=== PATIENT | male | born 1975 | race American Indian/Alaskan Native ===

== ENCOUNTER 2023-02-10 05:10 | Emergency (ER) | payer SELFPAY ==
[~2023-02-10] VITALS: Ht 170.2 cm; Wt 75.8 kg
[~2023-02-10 05:10] MED LIST: ALBU90OI INH; ALBU90OI6 INH; BUPR100 PO; BUPR150T2 PO; CEPH500 PO; CODGUAEL PO; DOXY100 PO; IBUP800 PO; LORA1 PO; MELO7.5 PO; NAPR500 PO; ONDA4 PO; OXYACE5T PO; OXYACE7.5T PO; PENVK500 PO; PRED10 PO; RXOXYACE PO; TRAM50 PO; VALS80 PO; [UNRECOGNIZED DRUG - OTHER]; [UNRECOGNIZED DRUG - REMARK]
[2023-02-10 05:27] VITALS: BP 127/93
[2023-02-10 07:25] LABS: Source, Urine Clean Catch
[2023-02-10] MEDS ORDERED: METR500 PO (07:27)
[2023-02-10] MEDS ORDERED: IBUP800 PO (07:27)
[2023-02-10 07:28] LABS: Appearance, Urine Hazy (Clear); Bilirubin, Urine Neg (Neg); Blood, Urine Neg (Neg); Color, Urine Yellow (P-Yellow); Glucose Qualitative, Urine Neg (Neg); Ketones, Urine Neg (Neg); Leukocyte Esterase, Urine 2+ (Neg); Nitrite, Urine Neg (Neg); Protein, Urine 1+ (Neg); Specific Gravity, Urine 1.015 (1.003-1.022); Urobilinogen, Urine 2+ (Normal)
[2023-02-10 07:36] LABS: White Blood Cells, Urine 25-50 /hpf (0-5)
[2023-02-10 07:38] LABS: Red Blood Cells, Urine 0-2 /hpf (0-2)
[2023-02-10 07:42] LABS: Bacteria Few /hpf; Mucus Mod (0-Heavy)
[2023-02-10 07:43] LABS: Spermatozoa Few /hpf
[2023-02-10 07:45] LABS: Hyaline Casts 0-2 /lpf (0-2); Squamous Epithelial Cells Not Seen /hpf (Few)
[2023-02-12 02:11] LABS: CHLAMYDIA TRACHOMATIS, NAA Negative (Negative)
== END 2023-02-10 07:45 | disposition home or self-care (01) ==
LOC: ER 05:10
PROVIDERS: Emergency Medicine
DX: N45.1 Epididymitis (principal); N34.1 Nonspecific urethritis; Z88.5 Allergy status to narcotic agent; Z88.8 Allergy status to other drugs, medicaments and biological substances; I10 Essential (primary) hypertension
CPT/HCPCS: 81001; 87086; 87491; 87591; 96372; 99283-25; A9270; J0696; J1885

== ENCOUNTER 2023-03-02 18:01 | Emergency (ER) | payer OTHER ==
[~2023-03-02] VITALS: Ht 172.7 cm; Wt 81.7 kg
[~2023-03-02 18:01] MED LIST changes: +METR500 PO
[2023-03-02] MEDS ORDERED: Amoxicillin500 MG PO (21:06)
[2023-03-02] MEDS ORDERED: Roxicodone5 MG PO (21:06)
[2023-03-02 21:35] VITALS: BP 170/113
== END 2023-03-02 21:46 | disposition home or self-care (01) ==
LOC: ER 18:01
DX: S02.40EA Zygomatic fracture, right side, initial encounter for closed fracture (principal); S02.40CA Maxillary fracture, right side, initial encounter for closed fracture; S02.31XA Fracture of orbital floor, right side, initial encounter for closed fracture; W01.198A Fall on same level from slipping, tripping and stumbling with subsequent striking against other object, initial encounter; I10 Essential (primary) hypertension; Z88.5 Allergy status to narcotic agent; Z79.899 Other long term (current) drug therapy; Z87.891 Personal history of nicotine dependence
CPT/HCPCS: 70450; 70486; 72125; 96374; 96375; 99283-25; A9270; J2405; J3010

== ENCOUNTER 2023-10-14 14:07 | Emergency (ER) | payer OTHER ==
[~2023-10-14] VITALS: Ht 172.7 cm; Wt 68.0 kg
[~2023-10-14 14:07] MED LIST changes: +Amoxicillin500 MG PO; +GABA300 PO; +PROP10 PO; +Prilosec Otc20 MG PO; +Roxicodone5 MG PO
[2023-10-14 14:30] VITALS: BP 146/101
[2023-10-15] MEDS ORDERED: SUBOXONE 8 MG-1 EACH SL (09:59)
[2023-10-15] MEDS ORDERED: NARCAN4 M1 (09:59)
[2023-10-15] MEDS ORDERED: ACTIVATED CHARCOAL PO (10:00)
[2023-10-15] MEDS ORDERED: MIRALAX17 GM PO (10:00)
[2023-10-15] MEDS ORDERED: ACET500 PO (10:00)
[2023-10-15] MEDS ORDERED: ASPI81CH PO (10:01)
[2023-10-15] MEDS ORDERED: IBUP200 PO (10:02)
[2023-10-15] MEDS ORDERED: GUAI200 PO (10:02)
[2023-10-15] MEDS ORDERED: LOPE2C PO (10:02)
[2023-10-15] MEDS ORDERED: Diphenhydramine50 M1 PO (10:02)
[2023-10-15] MEDS ORDERED: ZOCOR20 MG PO (10:03)
== END 2023-10-14 17:25 | disposition home or self-care (01) ==
LOC: ER 14:07
DX: T50.901A Poisoning by unspecified drugs, medicaments and biological substances, accidental (unintentional), initial encounter (principal); R40.4 Transient alteration of awareness; I10 Essential (primary) hypertension; Z87.891 Personal history of nicotine dependence; Z79.899 Other long term (current) drug therapy; Z88.5 Allergy status to narcotic agent
CPT/HCPCS: 82947; 99284

== ENCOUNTER 2023-10-15 07:55 | Inpatient (IN) | payer OTHER ==
[~2023-10-15] VITALS: Ht 172.7 cm; Wt 64.0 kg
[2023-10-15] VITALS (42 sets, daily range): BP systolic 63–121; BP diastolic 52–90
[2023-10-15] MEDS ORDERED: Lactated Ringer's 1,000 ML IV ONE ×3 (08:18→11:05)
[2023-10-15 08:20] LABS: Bicarbonate Venous 13.9 mmol/L (24.0-30.0); PCO2 Venous 67 mmHg (38-42); pH Blood Venous 7.05 (7.34-7.37)
[2023-10-15 08:21] LABS: Base Excess Venous -12.2 mmol/L
[2023-10-15 08:24] LABS: BASOPHILS ABSOLUTE AUTO 0.04 K/mm3 (0.00-0.23); BASOPHILS PERCENT AUTO 0 % (0-2); EOSINOPHILS ABSOLUTE AUTO 0.37 K/mm3 (0.00-0.68); EOSINOPHILS PERCENT AUTO 2 % (0-6); Hematocrit 42.4 % (37.0-53.0); Hemoglobin 12.7 g/dL (13.5-17.5); IMMATURE GRAN ABSOLUTE AUTO 0.11 K/mm3 (0.00-0.10); IMMATURE GRAN PERCENT AUTO 1 % (0-1); LYMPHOCYTES ABSOLUTE AUTO 1.35 K/mm3 (0.84-5.20); LYMPHOCYTES PERCENT AUTO 6 % (21-46); MONOCYTES ABSOLUTE AUTO 0.47 K/mm3 (0.16-1.47); MONOCYTES PERCENT AUTO 2 % (4-13); Mean Corpuscular HGB 27.7 pg (26.0-34.0); Mean Corpuscular Volume 92 fL (80-100); Mean Platelet Volume 10.1 fL (9.1-12.4); NEUTROPHILS ABSOLUTE AUTO 18.83 K/mm3 (1.96-9.15); NEUTROPHILS PERCENT AUTO 89 % (41-73); NRBC ABSOLUTE 0.02 K/mm3 (0.00-0.02); NRBC Auto 0.1 /100 WBC (0.0-0.2); Platelet Count 463 K/mm3 (150-400); RDW Coefficient Variation 15.4 % (11.7-14.2); RDW Standard Deviation 52.2 fL (35.1-46.3); Red Blood Cell Count 4.59 M/mm3 (4.30-5.90); White Blood Cell Count 21.17 K/mm3 (4.00-11.30)
[2023-10-15] MEDS ORDERED: propofoL 100 ML IV SCH ×2 (08:40→13:10)
[2023-10-15 08:41] LABS: Albumin, Blood 3.4 g/dL (3.4-5.0); Albumin/Globulin Ratio 0.8 (0.8-1.8); Bilirubin, Total 0.8 mg/dL (0.1-1.0); Bun/Creatinine Ratio 12.4 (12.0-20.0); Calcium, Blood 8.4 mg/dL (8.5-10.1); Creatinine, Blood 2.17 mg/dL (0.60-1.20); Globulin, Blood 4.3 g/dL (2.2-4.0); Potassium, Blood 5.3 mmol/L (3.5-5.5); Total Protein, Blood 7.7 g/dL (6.4-8.2)
[2023-10-15] MEDS ORDERED: Rocuronium Bromide 10 MG/ML 5ML Injection IV ONE ×2 (09:15→17:33)
[2023-10-15] MEDS ORDERED: Ketamine HCl 100 MG / ML 5ML Vial IV ONE ×3 (09:15→17:33)
[2023-10-15 09:41] LABS: Source, Urine Foley catheter
[2023-10-15 09:49] LABS: Appearance, Urine Clear (Clear); Bilirubin, Urine Neg (Neg); Blood, Urine 3+ (Neg); Color, Urine Yellow (P-Yellow); Glucose Qualitative, Urine 2+ (Neg); Ketones, Urine Neg (Neg); Leukocyte Esterase, Urine Neg (Neg); Nitrite, Urine Neg (Neg); Protein, Urine 2+ (Neg); Urobilinogen, Urine NORM (Normal)
[2023-10-15 09:56] LABS: Bacteria Few /hpf; Mucus Light (0-Heavy); Red Blood Cells, Urine 0-2 /hpf (0-2); Squamous Epithelial Cells Few /hpf (Few)
[2023-10-15] MEDS ORDERED: NARCAN4 M1 (09:59)
[2023-10-15] MEDS ORDERED: SUBOXONE 8 MG-1 EACH SL (09:59)
[2023-10-15] MEDS ORDERED: MIRALAX17 GM PO (10:00)
[2023-10-15] MEDS ORDERED: ACET500 PO (10:00)
[2023-10-15] MEDS ORDERED: ACTIVATED CHARCOAL PO (10:00)
[2023-10-15] MEDS ORDERED: ASPI81CH PO (10:01)
[2023-10-15] MEDS ORDERED: Diphenhydramine50 M1 PO (10:02)
[2023-10-15] MEDS ORDERED: LOPE2C PO (10:02)
[2023-10-15] MEDS ORDERED: IBUP200 PO (10:02)
[2023-10-15] MEDS ORDERED: GUAI200 PO (10:02)
[2023-10-15] MEDS ORDERED: ZOCOR20 MG PO (10:03)
[2023-10-15 10:04] LABS: U Amphetamine Screen DETECTED; U Barbituate Screen Not Detected; U Benzodiazapine Screen Not Detected; U Buprenorphine Screen DETECTED; U Cannabinoids Screen DETECTED; U Cocaine Screen Not Detected; U Methadone Screen Not Detected; U Methamphetamine Screen DETECTED; U Opiates Screen Not Detected; U Oxycodone Screen Not Detected; U Phencyclidine Screen Not Detected
[2023-10-15 10:18] LABS: pH Blood Venous 7.15 (7.34-7.37)
[2023-10-15 10:19] LABS: Base Excess Venous -8.5 mmol/L; Bicarbonate Venous 17.3 mmol/L (24.0-30.0); PCO2 Venous 59 mmHg (38-42)
[2023-10-15] MEDS ORDERED: Lactated Ringer's 1,000 ML IV SCH (10:20)
[2023-10-15] MEDS ORDERED: Ampicillin Sod/Sulbactam Sod 3 GM in NS 100 ML IV SCH (11:00)
--- NOTE | 2023-10-15 11:27 | NUR ---
ADMISSION: Pt arrived to ICU 09 from ED 26. He is intubated and sedated with soft wrist restraints in place. Propofol infusing at 5mck/kg/min, precedex at 1 mcg/kg/hr, and IVF bolus finishing.
[2023-10-15] MEDS ORDERED: NS 1,000 ML IV ONE ×4 (11:46→12:50)
--- NOTE | 2023-10-15 11:52 | NUR ---
PROVIDER UPDATE: Dr Mayberry notified of hypotension. See new order for NS bolus.
--- NOTE | 2023-10-15 12:10 | NUR ---
PATIENT BP SUDDENLY DROPPED TO SYSTOLICS 70'S, MAPS 50'S. PER DR. BINGHAM, INFIUSE CONTINUES NS BOLUSES UNTIL LEVOPHED GTT ARRIVES FROM PHARMACY. 1ST BAG INFUSING NOW WITH SECOND BAG WAITING TO BEGIN. CURRENT BP 64/56 MAP 60
[2023-10-15] MEDS ORDERED: Pantoprazole Sodium 40 MG Injection IV SCH (13:00)
[2023-10-15] MEDS ORDERED: Albumin (Human) 25gm/100ml 100 ML IV SCH (13:15)
[2023-10-15] MEDS ORDERED: Folic Acid 1 MG in NS 50 ML IV SCH (13:27)
[2023-10-15] MEDS ORDERED: Thiamine HCl 100 MG in NS 50 ML IV SCH (13:27)
[2023-10-15] MEDS ORDERED: levETIRAcetam 750 MG in NS 100 ML IV SCH (13:30)
[2023-10-15] MEDS ORDERED: NS 1,000 ML IV SCH ×3 (14:15→20:30)
[2023-10-15] MEDS ORDERED: LORazepam 2 MG/ML 1ML Injection ONE (14:52)
[2023-10-15] MEDS ORDERED: Midazolam HCl 1MG / ML 2ML Vial ONE (14:59)
[2023-10-15] MEDS ORDERED: Midazolam HCL 50 MG in NS 40 ML IV PRN (15:00)
[2023-10-15] MEDS ORDERED: LORazepam 2 MG/ML 1ML Injection IV PRN (15:00)
[2023-10-15] MEDS ORDERED: Midazolam HCl 1MG / ML 2ML Vial IV PRN (15:00)
[2023-10-15] MEDS ORDERED: Hydrogen Peroxide 1.5 % Solution MT SCH (16:00)
--- NOTE | 2023-10-15 18:14 | NUR ---
SHIFT SUMMARY PATIENT REQUIRED LEVOPHED TO BE STARTED DUE TO HYPOTENSION AND TITRATED THROUGHOUT SHIFT TO 10MCG/MIN. PROPOFOL @ 30MCG/KG/MIN, VERSED @ 1MG/HR, NS W/O. PATIENT WAS MEDICATED FOR AGITATION WITH ATIVAN AND VERSED AFTER PATIENT ATTEMPTED TO SELF EXTUBATE. PATIENT REMAINS INTUBATED. PICC LINE INSERTED THIS SHIFT DUE TO PRESSOR REQUIREMENTS. PATIENT DOES NOT FOLLOW COMMANDS, BUT MAKES PURPOSEFUL MOVEMENTS TO GRAB LINES AND TUBES WHEN SEDATION IS DOWN. PATIENT HAD GOOD URINE OUTPUT. NO BM THIS SHIFT WITH HYPOACTIVE BT.
[2023-10-15] MEDS ORDERED: Cetylpyridinium Chloride 1 EA MISC MT SCH (20:00)
--- NOTE | 2023-10-15 21:00 | NUR ---
ASSUMED CARE AT 1900 PT LAYING IN BED SEDATED AND INTUBATED. HE IS SEDATED WITH PROPOFOL INGUSING AT 30MCG/KG/MIN AND VERSED INFUSING AT 1MG/HR; RASS -3; REACTIVE TO ORAL CARE AND PERSONAL CARE. VENT SETTINGS AC/VC 20/450/10/55%; SMALL-MODERATE AMOUNT OF PINK/AYALA FROTHY SPUTUM SUCTIONED FROM ETT; CALL MADE TO DR DE DIOS REGARDING RATE OF NS INFUSING AND A NEW ORDER PROVIDED TO DECREASE RATE TO 150ML/HR; RR 20'S AND LUNG FEILDS CLEAR. AFEBRILE. HR 70'S. SBP 90-110'S WITH MAP 60-80; LEVOPHED INFUSING AT 8MCG/MIN; SEE FLOWSHEET FOR TITRATIONS. OG TO LIS. FRIEDMAN IN PLACE AND DRAINING TO GRAVITY. COOL AND DIAPHORETIC TO TOUCH; FAN PLACED AND BLANKETS REMOVED. PICC TO RUE PATENT WITH DRESSING C/D/I. SEE SHIFT ASSESSMENT FOR FULL ASSESSMENT.
[2023-10-16] VITALS (91 sets, daily range): BP systolic 86–163; BP diastolic 59–98
[2023-10-16 05:10] LABS: Hematocrit 30.7 % (37.0-53.0); Hemoglobin 9.7 g/dL (13.5-17.5); Mean Corpuscular HGB 27.5 pg (26.0-34.0); Mean Corpuscular HGB Conc 31.6 g/dL (31.5-36.5); Mean Platelet Volume 10.7 fL (9.1-12.4); Platelet Count 305 K/mm3 (150-400); RDW Standard Deviation 50.8 fL (35.1-46.3); Red Blood Cell Count 3.53 M/mm3 (4.30-5.90); White Blood Cell Count 17.03 K/mm3 (4.00-11.30)
[2023-10-16 05:11] LABS: Mean Corpuscular Volume 87 fL (80-100)
[2023-10-16 05:25] LABS: Albumin, Blood 2.7 g/dL (3.4-5.0); Anion Gap 10 mmol/L (3-11); Blood Urea Nitrogen 39 mg/dL (8-24); Bun/Creatinine Ratio 28.3 (12.0-20.0); CO2, Blood 23 mmol/L (21-32); Calcium, Blood 7.2 mg/dL (8.5-10.1); Chloride, Blood 113 mmol/L (98-108); Creatinine, Blood 1.38 mg/dL (0.60-1.20); Glomerular Filtration Rate 63 (60-); Glucose, Blood 113 mg/dL (70-99); Magnesium, Blood 1.7 mg/dL (1.6-2.4); Phosphorus, Blood 2.9 mg/dL (2.5-4.9); Potassium, Blood 4.9 mmol/L (3.5-5.5); Sodium, Blood 141 mmol/L (136-145)
--- NOTE | 2023-10-16 06:35 | NUR ---
END OF SHIFT SUMMARY NO ACUTE EVENTS OVERNIGHT. HE CONT TO BE SEDATED WITH PROPOFOL INFUSING AT 15MCG/KG/MIN AND VERSED CURRENTLY ON SB; RASS EITHER FROM -2 TO -3. VENT SETTINGS AC/VC 20/450/10/45%; SECREATIONS FROM ETT DECREASING SINCE START OF SHIFT. AFEBRILE. HR 70'S. SBP 100'S WITH LEVOPHED TITRATED DOWN TO 5MG/MIN. OG TO LIS WITH GREEN OUTPUT. FRIEDMAN IN PLACE WITH MODERATE AMOUNT OF OUTPUT. PICC TO LUE PATENT. PT LESS DIAPHORETIC THE NIGHT WENT ON. WILL REPORT TO AM RN WHEN AVAILABLE.
--- NOTE | 2023-10-16 07:44 | NUR ---
ASSUMED CARE I ASSUMED CARE OF THIS PATIENT FROM MATHEW Larkin RN @ [id number]. PATIENT IS LYING IN BED WITH EYES CLOSED, ON VENT AC/VC 20/450/8/45%. SPO2 100% ETCO2 29-30'S, RR 20. DOES NOT RESPOND TO VERBAL STIMULI, BUT RAISES EYE BROWS AND SHIFTS HEAD WITH PHYSICAL STIMULI AND REPOSITIONING. AT TIME OF REPORT PROPOFOL @ 15MCG/KG/MIN, TITRATED TO 10MCG/KG/MIN FOR ASSESSMENT. VERSED OFF, LEVOPHED @ 5MCG/MIN, NS @ 150ML/HR. PATIENT'S AUNT AT BEDSIDE AND UPDATE PROVIDED. FRIEDMAN REMAINS PATENT AND DRAINING CLEAR YELLOW URINE TO GRAVITY. BEDSIDE SHIFT REPORT COMPLETED WITH MATHEW Larkin RN.
[2023-10-16] MEDS ORDERED: Enoxaparin 40 MG/0.4 ML SYR SC SCH (09:00)
[2023-10-16] MEDS ORDERED: SIME80CH PO (10:24)
[2023-10-16] MEDS ORDERED: NICO21TP TOP (10:25)
[2023-10-16] MEDS ORDERED: NICORETTE2 M1 BC (10:28)
[2023-10-16] MEDS ORDERED: MELATONIN5 M1 PO (10:30)
[2023-10-16] MEDS ORDERED: MULTI-VITAMIN1 EAC2 PO (10:31)
--- NOTE | 2023-10-16 10:55 | NUR ---
SBT PATIENT TRIALED ON SPONTANEOUS AFTER FOLLOWING COMMANDS AND OPENING EYES. PATIENT BECAME APNEIC AND RETURNED TO AC/VC+. SEDATION REMAINS OFF AT THIS TIME.
--- NOTE | 2023-10-16 17:57 | NUR ---
SHIFT SUMMARY PATIENT REMAINS INTUBATED AFTER FAILING TWO SBT. PATIENT WAS UNABLE TO STAY AWAKE WITH ADEQUATE RESPIRATIONS DESPITE SEDATION BEING OFF. WHEN AWAKE PATIENT FOLLOWS COMMANDS AND ATTEMPTS TO OPEN EYES. PROPOFOL @ 15 MCG/KG/MIN AND NS @ 150ML/HR. OGT TO LIS WITH SCANT OUTPUT. FRIEDMAN PATENT AND DRAINING TO GRAVITY WITH GOOD URINE OUTPUT. NO BM THIS SHIFT. LEVOPHED AND VERSED REMAINS OFF. NO OTHER CHANGES THIS SHIFT.
--- NOTE | 2023-10-16 19:42 | NUR ---
ASSUMED CARE PATIENT REMAINS INTUBATED AND SEDATED ON PROPOFOL. PATIENT REPSONDS TO VERBAL AND TOUCH, MOVES ALL EXTREMITIES, UNABLE TO FOLLOW COMMANDS. SP02 99% ON VENT AC VC 20/450/5/30% RR 20. LS COARSE IN BASES, SMALL AMOUNT OF THICK AYALA SPUTUM. HR SR 70s. BP STABLE. OG TO LIS WITH SMALL AMOUNT GREEN BILE OUTPUT. FRIEDMAN PATENT AND DRAINING CLEAR YELLOW URINE TO GRAVITY. ORAL CARE DONE AND PATIENT REPOSITIONED. FAMILY AT BEDSIDE AT START OF SHIFT THEN WENT HOME. SEE SHIFT ASSESSMENT FOR MORE INFORMATION.
[2023-10-17] VITALS (66 sets, daily range): BP systolic 106–148; BP diastolic 70–105
[2023-10-17 04:07] LABS: BASOPHILS ABSOLUTE AUTO 0.04 K/mm3 (0.00-0.23); BASOPHILS PERCENT AUTO 0 % (0-2); EOSINOPHILS ABSOLUTE AUTO 0.09 K/mm3 (0.00-0.68); EOSINOPHILS PERCENT AUTO 1 % (0-6); Hematocrit 28.2 % (37.0-53.0); IMMATURE GRAN ABSOLUTE AUTO 0.12 K/mm3 (0.00-0.10); IMMATURE GRAN PERCENT AUTO 1 % (0-1); LYMPHOCYTES ABSOLUTE AUTO 1.95 K/mm3 (0.84-5.20); LYMPHOCYTES PERCENT AUTO 14 % (21-46); MONOCYTES ABSOLUTE AUTO 0.65 K/mm3 (0.16-1.47); MONOCYTES PERCENT AUTO 5 % (4-13); Mean Corpuscular HGB 27.4 pg (26.0-34.0); Mean Corpuscular HGB Conc 31.9 g/dL (31.5-36.5); Mean Corpuscular Volume 86 fL (80-100); Mean Platelet Volume 10.2 fL (9.1-12.4); NEUTROPHILS ABSOLUTE AUTO 11.09 K/mm3 (1.96-9.15); NEUTROPHILS PERCENT AUTO 80 % (41-73); Platelet Count 262 K/mm3 (150-400); RDW Coefficient Variation 16.5 % (11.7-14.2); RDW Standard Deviation 51.6 fL (35.1-46.3); Red Blood Cell Count 3.28 M/mm3 (4.30-5.90); White Blood Cell Count 13.94 K/mm3 (4.00-11.30)
[2023-10-17 04:26] LABS: Magnesium, Blood 1.9 mg/dL (1.6-2.4)
[2023-10-17 04:46] LABS: Albumin, Blood 2.5 g/dL (3.4-5.0); Albumin/Globulin Ratio 0.8 (0.8-1.8); Bilirubin, Total 0.5 mg/dL (0.1-1.0); Calcium, Blood 7.6 mg/dL (8.5-10.1); Creatinine, Blood 0.86 mg/dL (0.60-1.20); Globulin, Blood 3.1 g/dL (2.2-4.0); Phosphorus, Blood 1.4 mg/dL (2.5-4.9); Potassium, Blood 4.1 mmol/L (3.5-5.5); Total Protein, Blood 5.6 g/dL (6.4-8.2)
--- NOTE | 2023-10-17 05:17 | NUR ---
SHIFT SUMMARY PATIENT REMAINS INTUBATED AND SEDATED ON PROPOFOL. RESPONDS TO TOUCH, UNBALE TO FOLLOW COMMANDS. SP02 99% ON VENT, AC VC 20/450/5/30%, RR 20, SCANT AMOUNT OF THICK BROWN SPUTUM. OG TO LIS. HR SR 70s. BP STABLE. FRIEDMAN PATENT AND DRAINING SARAH URINE TO GRAVITY. REPOSITIONED Q2 HOURS.
[2023-10-17] MEDS ORDERED: Sodium Phosphate 20 MM in Dextrose 5% 500 ML IV ONE (06:10)
[2023-10-17] MEDS ORDERED: FentaNYL Citrate 50 MCG/ML 2 ML Injection ONE (07:19)
--- NOTE | 2023-10-17 07:34 | NUR ---
SEVERE AGITATION ASSUMED CARE AT 0705. BEDSIDE REPORT RECIEVED. PT INITIALLY RESTING QUIETLY AND SEDATED WITH PROPOFOL AT 20 MCG/KG/MIN. PT SUBSEQUENTLY BECAME SEVERELY AGITATED AND PULLED VENT TUBING OFF ETT AND WITH SEVERE THRASHING IN BED AND SITTING UP. OGT DISCONNECTED FROM SUCTION. PT EXTREMELY DIAPHORETIC. THIS RN, AND 2 OTHER STAFF MEMBERS NEEDED TO RECONNECT VENT, OGT, AND KEEP PT FROM COMING UP OUT OF BED. PT MED WITH ATIVAN AND FENTANYL, AND PROPOFOL GTT RAPIDLY TITRATED UP TO 60 MCG/KG/MIN. DR PAIZ CALLED AND NOTIFED OF EVENT. VITAL SIGNS STABLE AT THIS TIME. RT AT BEDSIDE TO INCREASE FIO2 TO 50%. WILL CONTINUE TO MONITOR.
[2023-10-17] MEDS ORDERED: FentaNYL Citrate 50 MCG/ML 2 ML Injection IV PRN (07:35)
[2023-10-17] MEDS ORDERED: fentaNYL citrate 50 MCG/ML 30MLSYR IV PRN (09:40)
[2023-10-17] MEDS ORDERED: NS 250 ML IV PRN (10:50)
[2023-10-17] MEDS ORDERED: Lactulose 20 GM/30 ML UDC PT ONE ×2 (12:00→16:00)
[2023-10-17] MEDS ORDERED: Bisacodyl 10 MG Supp PR PRN (12:40)
[2023-10-17] MEDS ORDERED: Docusate Sodium 100 MG UDC PT PRN (12:40)
[2023-10-17] MEDS ORDERED: Magnesium Hydroxide Conc 10 ML UDC PT PRN (12:40)
[2023-10-17] MEDS ORDERED: Protein Supplement 30 ML UD PT SCH (16:00)
--- NOTE | 2023-10-17 18:05 | NUR ---
SHIFT SUMMARY PT REMAINS INTUBATED AND SEDATED. PT VENT SETTINGS REMAIN AC 20, TV 450, PEEP 5, FIO2 30%. PT WITH LARGE AMOUNT OF THICK, AYALA ETT SECRETIONS. PT HAS REMAINED SEDATED WITH PROPOFOL AND ADDITION OF FENTANYL CONTINUOUS GTT THIS SHIFT. SEE FLOWSHEET FOR TITRATIONS. PT WITHOUT FUTHER EPISODES OF AGITATION/THRASHING AFTER EVENT AT START OF SHIFT. SEE PREVIOUS NN. OGT REMAINS IN PLACE WITH TF STARTED AT 30 ML/HR GOAL RATE THIS SHIFT. PICC TO GAGE REMAINS C/D/I. NS INFUSING AT 150 ML/HR AND NS TKO. FRIEDMAN TEMP PROBE REMAINS IN PLACE WITH YELLOW URINE OUTPUT NOTED. DR PAIZ NOTIFIED OF CALL FROM [facility] STAFF WITH REPORTED SUSPICION OF HIDDEN FENTANYL IN RECTUM AND POSITIVE FENTANYL TOX SCREEN. LACTULOSE PT GIVEN PER ORDERS WITH NO BM NOTED AT THIS TIME. SBW RESTRAINTS REMAIN IN PLACE. VITAL SIGNS STABLE. MULTIPLE FAMILY MEMBERS IN AND OUT THROUGHOUT THE SHIFT AND UPDATED THROUGHOUT THE DAY. WILL CONTINUE TO MONITOR AND REPORT OFF TO ONCOMING RN.
--- NOTE | 2023-10-17 19:51 | NUR ---
ASSUMED CARE AT 1900 PATIENT IS INTUBATED AND SEDATED ON PROPOFOL AND FENTANYL, RESPONDS TO PAINFUL STIMULI AND MOVES ALL EXTREMITIES. SP02 97% ON VENT AC VC 20/450/5/30%, RR 20, THICK AYALA SECRETIONS. HR SR 60s, BP STABLE. OG WITH TF AT GOAL. FRIEDMAN PATENT AND DRAINING TO GRAVITY. ORAL CARE DONE AND PATIENT REPOSITIONED
[2023-10-18] VITALS (93 sets, daily range): BP systolic 106–167; BP diastolic 77–111
[2023-10-18 04:01] LABS: BASOPHILS ABSOLUTE AUTO 0.04 K/mm3 (0.00-0.23); BASOPHILS PERCENT AUTO 0 % (0-2); Bicarbonate Venous 21.4 mmol/L (24.0-30.0); EOSINOPHILS PERCENT AUTO 2 % (0-6); Hematocrit 29.4 % (37.0-53.0); Hemoglobin 9.6 g/dL (13.5-17.5); IMMATURE GRAN PERCENT AUTO 1 % (0-1); LYMPHOCYTES ABSOLUTE AUTO 1.47 K/mm3 (0.84-5.20); LYMPHOCYTES PERCENT AUTO 12 % (21-46); MONOCYTES PERCENT AUTO 7 % (4-13); Mean Corpuscular HGB 28.2 pg (26.0-34.0); Mean Corpuscular HGB Conc 32.7 g/dL (31.5-36.5); Mean Corpuscular Volume 86 fL (80-100); Mean Platelet Volume 10.4 fL (9.1-12.4); NEUTROPHILS ABSOLUTE AUTO 9.69 K/mm3 (1.96-9.15); NEUTROPHILS PERCENT AUTO 78 % (41-73); PCO2 Venous 39.4 mmHg (38-42); Platelet Count 272 K/mm3 (150-400); RDW Coefficient Variation 16.9 % (11.7-14.2); RDW Standard Deviation 52.9 fL (35.1-46.3); Red Blood Cell Count 3.41 M/mm3 (4.30-5.90); pH Blood Venous 7.35 (7.34-7.37)
[2023-10-18 04:02] LABS: Base Excess Venous -3.6 mmol/L
[2023-10-18 04:17] LABS: Bun/Creatinine Ratio 33.4 (12.0-20.0); Calcium, Blood 8.1 mg/dL (8.5-10.1); Creatinine, Blood 0.63 mg/dL (0.60-1.20); Magnesium, Blood 2.3 mg/dL (1.6-2.4); Phosphorus, Blood 2.7 mg/dL (2.5-4.9); Potassium, Blood 3.6 mmol/L (3.5-5.5)
--- NOTE | 2023-10-18 05:48 | NUR ---
SHIFT SUMMARY PATIENT REMAINS INTUBATED AND SEDATED ON PROPOFOL AND FENTANYL. RESPONDS TO PAIN. SP02 97% ON VENT AC VC 20/450/5/30%, RR 20. THICK AYALA SPUTUM SUCTIONED FROM ETT. HR SR 60s, BP STABLE. OG WITH TF AT GOAL. FRIEDMAN PATENT AND DRAINING SARAH URINE. PATIENT REPOSITIONED Q2 HOURS.
[2023-10-18] MEDS ORDERED: Multivitamins-Minerals Liquid 15 ML Oral Syringe PT SCH (09:00)
[2023-10-18] MEDS ORDERED: CeFAZolin Sodium 1,000 MG in NS 50 ML IV SCH (12:00)
--- NOTE | 2023-10-18 18:35 | NUR ---
Summary. Pt remains sedated and intubated. Pt did not tolerate sedation vacation this am or wean. Family updated. No acute events this shift, see chart for further details.
--- NOTE | 2023-10-18 19:22 | NUR ---
ASSUMED CARE AT 1900 PATIENT IS INTUBATED AND SEDATED ON PROPOFOL AND FENTANYL, PRN VERSED GIVEN FOR AGITATION. PATIENT OPENING EYES AND PULLING AT RESTRAINTS BUT UNABLE TO FOLLOW COMMANDS. SP02 99% ON VENT AC VC 20/450/5/30%, RR 20, LS CLEAR. HR SR 70s, BP STABLE. OG WITH VITAL AF TUBE FEED AT GOAL RATE. FRIEDMAN PATENT AND DRAINING GREEN TINGED URINE TO GRAVITY. PATIENT REPOSITIONED AND ORAL CARE DONE.
[2023-10-18] MEDS ORDERED: Lactobacil 2-S.Thermo-Bifido 1 1 Cap PO SCH (21:00)
[2023-10-19] VITALS (46 sets, daily range): BP systolic 119–174; BP diastolic 81–116
[2023-10-19 04:15] LABS: BASOPHILS ABSOLUTE AUTO 0.03 K/mm3 (0.00-0.23); BASOPHILS PERCENT AUTO 0 % (0-2); EOSINOPHILS ABSOLUTE AUTO 0.18 K/mm3 (0.00-0.68); EOSINOPHILS PERCENT AUTO 2 % (0-6); Hematocrit 27.5 % (37.0-53.0); Hemoglobin 8.8 g/dL (13.5-17.5); IMMATURE GRAN ABSOLUTE AUTO 0.12 K/mm3 (0.00-0.10); IMMATURE GRAN PERCENT AUTO 1 % (0-1); LYMPHOCYTES ABSOLUTE AUTO 1.41 K/mm3 (0.84-5.20); LYMPHOCYTES PERCENT AUTO 17 % (21-46); MONOCYTES ABSOLUTE AUTO 0.84 K/mm3 (0.16-1.47); MONOCYTES PERCENT AUTO 10 % (4-13); Mean Corpuscular HGB 27.7 pg (26.0-34.0); Mean Corpuscular Volume 87 fL (80-100); Mean Platelet Volume 10.4 fL (9.1-12.4); NEUTROPHILS ABSOLUTE AUTO 5.86 K/mm3 (1.96-9.15); NEUTROPHILS PERCENT AUTO 69 % (41-73); NRBC ABSOLUTE 0.02 K/mm3 (0.00-0.02); NRBC Auto 0.2 /100 WBC (0.0-0.2); Platelet Count 294 K/mm3 (150-400); RDW Coefficient Variation 16.6 % (11.7-14.2); RDW Standard Deviation 52.7 fL (35.1-46.3); Red Blood Cell Count 3.18 M/mm3 (4.30-5.90); White Blood Cell Count 8.44 K/mm3 (4.00-11.30)
[2023-10-19 04:36] LABS: Bun/Creatinine Ratio 28.7 (12.0-20.0); Creatinine, Blood 0.7 mg/dL (0.60-1.20); Magnesium, Blood 2.3 mg/dL (1.6-2.4); Phosphorus, Blood 3.4 mg/dL (2.5-4.9); Potassium, Blood 3.5 mmol/L (3.5-5.5)
--- NOTE | 2023-10-19 05:55 | NUR ---
SHIFT SUMMARY PATIENT REMAINS INTUBATED AND SEDATED ON PROPOFOL AND FENTANYL. RESPONDS TO TOUCH. SP02 99% ON VENT AC VC 20/450/5/30%, RR 21, MODERATE AMOUNT OF THICK SECRETIONS FROM ETT. HR SR 60s, BP STABLE. OG WITH TUBE FEED AT GOAL RATE. FRIEDMAN PATENT AND DRAINING GREEN URINE TO GRAVITY. REPOSITIONED Q2 HOURS. UPDATED FAMILY.
--- NOTE | 2023-10-19 18:24 | NUR ---
Summary. Pt remains sedated and intubated. Pt did not follow commands during wean this am, Propofol turned down to 10 for approximately 30 minutes. No other changes. VS stable throughout shift. See chart for further details. Family updated.
--- NOTE | 2023-10-19 20:59 | NUR ---
ASSUMED CARE PT IS INTUBATED AND SEDATED ON PRESSURE CONTROL 18/10/6/30%. AUNT AND 2 FAMILY MEMBERS INTO VISIT AT BEGINNING OF SHIFT SEPARATELY. ON SEDATION VACATION PT OPENS EYES, BUT DOES NOT TRACK OR FOLLOW COMMANDS. PT BECOMES TACHYPNEIC (40'S), AND AGITATED; SEDATION REINITATED.
[2023-10-19] MEDS ORDERED: Labetalol HCL 5 MG/ML 4ML Injection (Single Dose) IV PRN (21:00)
[2023-10-20] VITALS (47 sets, daily range): BP systolic 119–180; BP diastolic 77–118
[2023-10-20 03:24] LABS: BASOPHILS ABSOLUTE AUTO 0.04 K/mm3 (0.00-0.23); BASOPHILS PERCENT AUTO 1 % (0-2); EOSINOPHILS ABSOLUTE AUTO 0.18 K/mm3 (0.00-0.68); EOSINOPHILS PERCENT AUTO 2 % (0-6); Hematocrit 27.2 % (37.0-53.0); Hemoglobin 8.9 g/dL (13.5-17.5); IMMATURE GRAN ABSOLUTE AUTO 0.29 K/mm3 (0.00-0.10); IMMATURE GRAN PERCENT AUTO 3 % (0-1); LYMPHOCYTES ABSOLUTE AUTO 1.44 K/mm3 (0.84-5.20); LYMPHOCYTES PERCENT AUTO 16 % (21-46); MONOCYTES ABSOLUTE AUTO 1.18 K/mm3 (0.16-1.47); MONOCYTES PERCENT AUTO 13 % (4-13); Mean Corpuscular HGB 27.6 pg (26.0-34.0); Mean Corpuscular HGB Conc 32.7 g/dL (31.5-36.5); Mean Corpuscular Volume 85 fL (80-100); Mean Platelet Volume 9.8 fL (9.1-12.4); NEUTROPHILS ABSOLUTE AUTO 5.67 K/mm3 (1.96-9.15); NEUTROPHILS PERCENT AUTO 64 % (41-73); Platelet Count 274 K/mm3 (150-400); RDW Coefficient Variation 16.8 % (11.7-14.2); RDW Standard Deviation 52.2 fL (35.1-46.3); Red Blood Cell Count 3.22 M/mm3 (4.30-5.90)
[2023-10-20 03:47] LABS: Bun/Creatinine Ratio 30.4 (12.0-20.0); Calcium, Blood 8.2 mg/dL (8.5-10.1); Creatinine, Blood 0.63 mg/dL (0.60-1.20); Magnesium, Blood 2.1 mg/dL (1.6-2.4); Phosphorus, Blood 4.2 mg/dL (2.5-4.9); Potassium, Blood 3.8 mmol/L (3.5-5.5)
--- NOTE | 2023-10-20 05:46 | NUR ---
SHIFT SUMMARY PT REMAINS INTUBATED AND SEDATED; VENT SETTINGS UNCHANGED. SPO2 >92%; MAP >65; RATE IN THE 70-80'S. PT HAS BEEN HYPERTENSIVE T/O NIGHT AND TREATED W/ LABETALOL PER DR MAYA. PT REQUIRED VERSED SEVERAL TIMES T/O NIGHT TO ASSIST W/ VENTILATOR COMPLIANCE; TACHYPNEIC, PULLING AT RESTRAINT/MOVING IN BED, AND OPENING EYES. PT CONTINUES TO NOT FOLLOW COMMANDS OR TRACK W/ EYES. BESIDES AGITATION AND HYPERTENSION NO ACUTE EVENTS OVERNIGHT. FRIEDMAN CATHETER PATENT AND DRAINING TO GRAVITY.
--- NOTE | 2023-10-20 07:00 | NUR ---
ASSUME CARE: I have assumed care of this patient.
--- NOTE | 2023-10-20 12:22 | NUR ---
FAMILY UPDATE: Pt's daughter, Tracie, called and updated on plan of care provided by Dr Mayberry. Possible plan to extubate tomorrow between 10AM-12PM. Family would like to be present at bedside.
[2023-10-20] MEDS ORDERED: Furosemide 10 MG/ML 4ML Vial IV ONE (13:00)
--- NOTE | 2023-10-20 19:16 | NUR ---
SHIFT SUMMARY: Precedex started today so propofol could be titrated down. Pt now able to open eyes spontaneously and move all extremities. He has required several doses of PRN versed as well. Pt diuresed today with good output. No BM today. Tube feeds at goal rate. Several family members at bedside for updates and visiting.
--- NOTE | 2023-10-20 20:48 | NUR ---
PATIENT RESTLESS AT TIME OF ASSESSMENT, NOT FOLLOWING COMMANDS, OR FOCUSING, TRACKING WITH EYES. SWINGING LEGS UP AND RT. LEG OVER SIDE OF BED. MEDICATED WITH VERSED APPROXIMATELY 30 MINUTES PRIOR. PRPOFOL SLOWLY INCREASED FROM 20 MCG TO 35 MCG OVER 40-45 MINUTES PERIOD. PATIENT LESS RESTLESS AT PRESENT TIME.
[2023-10-21] VITALS (44 sets, daily range): BP systolic 118–193; BP diastolic 69–123
--- NOTE | 2023-10-21 00:06 | NUR ---
PATIENT STARTING TO PULL LEGS UP ONCE AGAIN, COUGHING AGAINST VENTILATOR, HEART RATE AND RESPIRATORY RATE INCREASING. MEDICATED WITH VERSED IV SLOWLY AND PATIENT SLOWLY DECREASING HEART RATE AND RESPIRATORY RATE. PRROPOFOL DOSE REMAINS SAME AT 35 MCG.
--- NOTE | 2023-10-21 02:58 | NUR ---
PATIENT BECOMING VERY AGITATED AFTER BATHING, RESPIRATORY RATE INCREASING TO 44-46, HEART RATE ELEVATED, PATIENT PLACED IN POSITION OF COMFORT, SUCTIONED WITH MODERATE AMOUNT OF SECRETIONS REMOVED AND MEDICATED WITH VERSED 1MG. INITIALLY NO EFFECT FROM VERSED, PROPOFOL INCREASED TO 45 MCG AND AWAITING RESPONSE.
[2023-10-21 03:57] LABS: Albumin, Blood 2.3 g/dL (3.4-5.0); Anion Gap 9 mmol/L (3-11); Blood Urea Nitrogen 21 mg/dL (8-24); Bun/Creatinine Ratio 33.7 (12.0-20.0); CO2, Blood 26 mmol/L (21-32); Calcium, Blood 7.7 mg/dL (8.5-10.1); Chloride, Blood 115 mmol/L (98-108); Creatinine, Blood 0.62 mg/dL (0.60-1.20); Glomerular Filtration Rate 118 (60-); Glucose, Blood 120 mg/dL (70-99); Phosphorus, Blood 3.5 mg/dL (2.5-4.9); Potassium, Blood 3.5 mmol/L (3.5-5.5); Sodium, Blood 146 mmol/L (136-145)
[2023-10-21] MEDS ORDERED: LORazepam 2 MG/ML 1ML Injection IV PRN (11:20)
--- NOTE | 2023-10-21 11:44 | NUR ---
SHIFT ASSESSMENT ASSUMED CARE OF PT @ 0700, BEDSIDE REPORT RECEIVED FROM NOC NURSE. PT INITIALLY VENTILATED & SEDATED c PROPOFOL, PRECEDEX, AND FENTANYL c RASS OF -3/-4. SEDATION TITRATED DOWN FOR SBT. PT PASSED SBT. ABLE TO FOLLOW SIMPLE COMMANDS, TRACKING NURSE, LULA. PT EXTUBATED @ 1100 TO 2LPM O2 VIA NC c SATS >90%. OGT REMOVED. PT ABLE TO COUGH AND CLEAR SECRETIONS. NOT ANSWERING QUESTIONS AT THIS TIME, RESPONDED TO QUESTIONS WITH "GET ME THE F&@# OUT OF HERE". PTS FAMILY AT BEDSIDE, ABLE TO CALM PT. FRIEDMAN CATH REMAINS IN PLACE DRAINING SARAH URINE. NO BM.
--- NOTE | 2023-10-21 18:05 | NUR ---
SHIFT SUMMARY ASSUMED CARE OF PT AT 1530, BEDSIDE REPORT RECIEVED FROM GINGER PAEZ. PT IS A/O X PERSON AND PLACE, RECOGNIZES FAMILY, NOT ORIENTED TO SITUATION OR TIME. DEMANDING AT TIMES, REDIRECTABLE WITH FIRM, CLEAR BOUNDARY SETTING. SR, BP ELEVATED REQUIRING 2 DOSES OF LABETALOL IV WITH GOOD RESULTS. O2 SATS > 96 % ON ROOM AIR. DIET ADVANCED TO REGULAR, PT TOLERATING WELL. FRIEDMAN D/C'D, CONDOM CATH PLACED. SKIN LARGELY INTACT WITH SOME SMALL SCABS ON LEGS. PIV X1 AND PICC LINE IN PLACE. ALL FLUSH WELL. FAMILY TO BEDSIDE TO VISIT. SUPPORTIVE OF PT. POC ONGOING.
--- NOTE | 2023-10-21 18:53 | NUR ---
SUICIDE ASSESSMENT IN ASSESSING PT'S ORIENTATION, HE STATES THAT THE EVENTS THAT BROUGHT HIM IN TO THE HOSPITAL WERE "FENTANYL OVERDOSE". WHEN QUESTIONED ABOUT HIS MOTIVES IN OVERDOSING, PT STATES "I WAS TRYING TO GO SEE MY MOM". I ASKED PT IS HIS MOTHER WAS AND HE STATED "YES". PT VERBALIZES THAT HE KNOWS THAT THE OVERDOSE WOULD END HIS LIFE. HE IS ABLE TO STATE THAT HE IS IN [facility] AND HAS BEEN HERE [address] CARR REGARDING THE ABOVE, HE CONTACTED AN MD IN HOUSE TO COMPLETE 2 MD HOLD. TOBACCO WETTER NOTIFIED OF POSITIVE SUICIDE SCREEING AND NEED FOR 1:1 DIRECT OBSERVATION. PSYCH CONSULT PLACED PER DR. FLOYD. BEDSIDE REPORT GIVEN TO ONCOMING RN, PCT TO BEDSIDE TO PROVIDE DIRECT SUPERVISION. POC ONGOING.
--- NOTE | 2023-10-21 19:00 | NUR ---
Assumed care PATIENT IS ALERT AND ORIENTED TO PERSON/PLACE MILDLY SITUATION, IS CONVERSIVE BUT HAS MULTIPLE CUSS WORDS IN NORMAL CONVERSATION. PATIENT HAS SINUS RHYTHM ON MONITOR AND IS HYPERTENSIVE 180/90'S ON THE BP. PATIENT EAGER TO SEE FAMILY "AUNT XIANG" "FUCKING CALL HER, MAN". PATIENT RR 20 LUNGS ARE CLEAR T/O HOWEVER HE IS COUGHING AND ONLY MILDLY PRODUCTIVE WITH CLEAR SECRETION COMING UP INTO TISSUE. PT HAS 1 PIV AND 1 TRIPLE LUMEN PICC LINE TO LEFT UPPER ARM. TKO FOR ANTIBIOTIC HUNG GOING INTO PICC LINE. PT HAD ON A CONDOM CATH HOWEVER IT CAME OFF AND HE WAS INCONTINENT IN BED. HE RECIEVED AN ENTIRE BEDBATH WT SOAP AND WATER ALL NEW LINEN AND A NEW CONDOM CATH.
--- NOTE | 2023-10-21 22:34 | NUR ---
UPDATE PT CALMING DOWN FOR THE NIGHT S/P HAVING SISTER XIANG VISIT. PT VOIDED IN BED AGAIN AND AN ENTIRE BED CHANGE WAS COMPLETED. PT LAYING ON LEFT SIDE AND RHYTHM THAT WAS SINUS HAS CHANGED TO SINUS WITH INTERMITTENT PVC'S.. FREQUENTLY. CONCERN PICC IN CLOSE TO HEART. WILL CONTINUE TO MONITOR AND ENCOURAGE PT TO LAY ON HIS BACK OR RIGHT SIDE TILL PICC CAN BE PULLED BACK A COUPLE CM.
[2023-10-21] MEDS ORDERED: QUEtiapine Fumarate 25 MG Tab PO ONE (23:45)
[2023-10-22] VITALS (12 sets, daily range): BP systolic 132–181; BP diastolic 88–129
--- NOTE | 2023-10-22 | NUR ---
BELONGINGS SENT HOME PT'S AUNT XIANG CAME IN TO SEE PT SINCE HE WAS ASKING FOR HER. SHE CAME IN WITH TWO OTHER GENTLE MEN. TOLD AUNT XIANG THE PT IS NOW ON A 2MD HOLD AND ASKED IF SHE WOULD TAKE HIS BELONGINGS OF UNDERWEAR AND SOCKS HOME WITH HER. SHE DID.
--- NOTE | 2023-10-22 00:04 | NUR ---
update spoke with Dr Pelletier. Pt has been having lots of rambling conversation with jaki and this RN. Pt not able to calm himself to rest. Asked for seroquil. A one time dose was given to pt as he was also eatting another 2 cups of ice cream for the evening.
[2023-10-22 04:23] LABS: Albumin, Blood 2.8 g/dL (3.4-5.0); Anion Gap 10 mmol/L (3-11); Blood Urea Nitrogen 15 mg/dL (8-24); Bun/Creatinine Ratio 23.9 (12.0-20.0); CO2, Blood 27 mmol/L (21-32); Calcium, Blood 8.6 mg/dL (8.5-10.1); Chloride, Blood 111 mmol/L (98-108); Creatinine, Blood 0.63 mg/dL (0.60-1.20); Glomerular Filtration Rate 117 (60-); Glucose, Blood 96 mg/dL (70-99); Potassium, Blood 3.3 mmol/L (3.5-5.5); Sodium, Blood 145 mmol/L (136-145)
[2023-10-22] MEDS ORDERED: Potassium Chloride 40 MEQ in NS 250 ML IV ONE (04:40)
--- NOTE | 2023-10-22 05:19 | NUR ---
END OF SHIFT NOTE PT HAD NEEDED SOME ASSISTANCE TO TRY AND REST TONIGHT. HE DID GET SERAQUIL 25MCG AND THEN HE WAS STILL AGGITATED AT 0100 AM. SO HE RECEIVED 2MG OF ATIVAN WELL. HE HAS RESTED SOME SINCE THEN. HE HAS NOW ONLY GOT A PICC LINE TO HIS LEFT UPPER ARM. IT IS 2 CM OUT NOW DO HELP DECREASE ECTOPY THAT WAS OCCURING WHEN HE WOULD LAY ON HIS LEFT SIDE. PT AGREED TO ME AND PREVIOUS NURSE THAT HE WAS TAKING THE FENTANYL AT [place] TO TRY AND "MEET HIS MOTHER" WHO IS ALREADY PAST ON. PATIENT IS NOW CURRENTLY ON A 2 MD HOLD AND HIGH SI. PT HAS RECEIVED 2 NEW CONDOM CATHETERS TONIGHT SINCE THEY WERE NOT ATTACHING WELL AND HE HAD A FEW INCONTINENT VOIDS IN THE BED, THERE BY GETTING A BEDBATH AND LINEN CHANGE TWICE TONIGHT. HE HAD HAD GOOD URINE OUTPUT. SO MUCH SO THAT HE IS NOW RECEIVING A KCL IVP 40 MEQ. VITAL SIGNS HAVE REMAINED WELL SINCE HE GOT LABETOLOL AT THE BEGINING OF THE SHIFT FOR HYPERTENSION. HE IS EATTING WELL AND TOOK DOWN 4 ICE CREAMS SNACKS AND A PUDDING TONIGHT. SISTER REMAINS AT PT BEDSIDE 1:1 FOR HIGH SI. ROOM HAS BEEN STRIPPED DOWN FOR SAFETY. AUNT XIANG VISITED LAST NIGHT WITH TWO OTHER GENTLEMEN. SHE IS TO BE BACK IN TO SEE PT THIS AM BEFORE SHE GOES TO WORK.
[2023-10-22] MEDS ORDERED: Multivitamins/Minerals 1 Tab PO SCH (10:00)
--- NOTE | 2023-10-22 14:53 | NUR ---
Pt transferred to room 353. Report given to RN assuming care. All personal belongings sent with patient to new room. Pt condition stable at time of transport.
--- NOTE | 2023-10-22 16:50 | NUR ---
RN NOTE MR LUNA WAS TRANSFERED FROM ICU TO MEDICAL UNIT AT 1435HRS. A SLIDE SHEET WAS USED TO MOVE HIM FROM BED TO BED. PER REPORT HE HAD NOT BEEN UP OUT OF BED SINCE ADMISSION. HE STO[place] [facility] A HEAVY 2 PERSON TRANSFER WITH A LOT OF VERBAL PROMPTS AND REMINDERS. ORIENTATED TO [facility] AND 2023, NOT MONTH, AND SAID HE IS HERE BECAUSE OF OVERDOSE. HIS SPEACH IS SLURRED. HE ASKS REPEATED QUESTIONS AND ASKS WHEN HE IS GOING TO BE DISCHARGED HOME. ON 2 MD HOLD. SITTER AT BEDSIDE. DAUGHTER/ FAMILY CAME IN TO VISIT. DENIED PAIN. BED LOW, CALL LIGHT IN REACH, BED ALARM ON.
--- NOTE | 2023-10-22 17:07 | NUR ---
MD CALL MANUAL BP 180/102. DR CARR CALLED AND NOTIFIED. HE IS PUTTING IN NEW MEDICATION ORDERS. PT NO LONGER ON TELEMETRY/CARDIAC MONITORING.
[2023-10-22] MEDS ORDERED: HydrALAZINE HCl 20 MG / ML 1ML Vial IV PRN (17:15)
[2023-10-22] MEDS ORDERED: Losartan Potassium 50 MG Tab PO SCH (18:00)
[2023-10-22] MEDS ORDERED: AmLODIPine Besylate 5 MG Tab PO SCH (20:10)
[2023-10-22] MEDS ORDERED: Ketorolac Tromethamine 15mg Vial IV PRN (21:40)
[2023-10-23 02:29] VITALS: BP 158/116
[2023-10-23] MEDS ORDERED: Acetaminophen 325 MG TABLET PO PRN (02:40)
--- NOTE | 2023-10-23 05:54 | NUR ---
SHIFT SUMMARY NOC PT A/O X 3. LABILE, BUT COOPERATIVE WITH CARE. BP ELEVATED, HYDRALAZINE UNAVAILABLE. PT STARTED ON AMLODAPINE 5 MG DAILY WITH FIRST DOSE GIVEN LAST NIGHT. PT HAS POWER PICC IN GAGE. PT HASD C/O OF CHIPPED TOOTH AND PAIN ASSOCIATED WITH IT. ORDER FOR TORADOL 15 MG IV Q6H OBTAINED. PT HAS SITTER IN PLACE FOR SI 2 MD HOLD. PT AUNT STAYED WITH PT T/O NIGHT AND HELPS TO KEEP PT CALM. PT CURRENTLY RESTING WITH BED ALARM ON, BED IN LOWEST POSITION, AND CALL LIGHT WITHIN REACH.
[2023-10-23 05:55] LABS: BASOPHILS ABSOLUTE AUTO 0.04 K/mm3 (0.00-0.23); BASOPHILS PERCENT AUTO 0 % (0-2); EOSINOPHILS ABSOLUTE AUTO 0.28 K/mm3 (0.00-0.68); EOSINOPHILS PERCENT AUTO 2 % (0-6); IMMATURE GRAN PERCENT AUTO 2 % (0-1); LYMPHOCYTES ABSOLUTE AUTO 1.74 K/mm3 (0.84-5.20); LYMPHOCYTES PERCENT AUTO 14 % (21-46); MONOCYTES ABSOLUTE AUTO 1.44 K/mm3 (0.16-1.47); MONOCYTES PERCENT AUTO 12 % (4-13); Mean Corpuscular HGB Conc 32.3 g/dL (31.5-36.5); Mean Corpuscular Volume 84 fL (80-100); Mean Platelet Volume 10.2 fL (9.1-12.4); NEUTROPHILS ABSOLUTE AUTO 8.72 K/mm3 (1.96-9.15); NEUTROPHILS PERCENT AUTO 70 % (41-73); Platelet Count 282 K/mm3 (150-400); RDW Coefficient Variation 16.5 % (11.7-14.2); RDW Standard Deviation 50.5 fL (35.1-46.3); White Blood Cell Count 12.52 K/mm3 (4.00-11.30)
[2023-10-23 06:10] LABS: Albumin, Blood 3.1 g/dL (3.4-5.0); Anion Gap 8 mmol/L (3-11); Blood Urea Nitrogen 14 mg/dL (8-24); Bun/Creatinine Ratio 21.1 (12.0-20.0); CO2, Blood 26 mmol/L (21-32); Calcium, Blood 8.8 mg/dL (8.5-10.1); Chloride, Blood 108 mmol/L (98-108); Creatinine, Blood 0.66 mg/dL (0.60-1.20); Glomerular Filtration Rate 116 (60-); Glucose, Blood 127 mg/dL (70-99); Phosphorus, Blood 3.2 mg/dL (2.5-4.9); Potassium, Blood 3.1 mmol/L (3.5-5.5); Sodium, Blood 139 mmol/L (136-145)
[2023-10-23] MEDS ORDERED: Potassium Chloride 20 MEQ TabCR PO ONE (06:45)
[2023-10-23 07:12] VITALS: BP 180/113
[2023-10-23] MEDS ORDERED: Nicotine 21 MG PATCH TOP SCH (09:00)
[2023-10-23 09:08] VITALS: BP 146/112
[2023-10-23 13:22] VITALS: BP 174/123
[2023-10-23 13:27] VITALS: BP 173/119
--- NOTE | 2023-10-23 14:47 | NUR ---
PER DR. CARR, PT APPROPRIATE FOR DISCHARGE. [facility] TO [facility] FOR PROC[facility].
[2023-10-23] MEDS ORDERED: CEFP200 PO (15:49)
[2023-10-23] MEDS ORDERED: VISBIOME 112.51 EACH PO (15:50)
[2023-10-23] MEDS ORDERED: AMLO5 PO (15:54)
[2023-10-23] MEDS ORDERED: LOSA50 PO (15:55)
--- NOTE | 2023-10-23 16:41 | NUR ---
DISCHARGE NOTE: WATER WELL DRILLER REMOVED PICC LINE. DISCHARGE COMPLETED AND DISCUSSED WITH PATIENT. PATIENT STATED THAT HE RECEIVED HIS CARE THROUGH [facility]; DR. WILLAMS(?) UNABLE TO IDENTIFY THIS PROVIDER. MEDS FAXED TO BOTH [facility]UE TO BEING OPEN TODAY AND [facility] HIS PRIMARY PHARMACY. HIS FAMILY ARRIVED TO TAKE HIM HOME. PATIENT REFUSED TO BE WHEELED DOWN AND FILE A SAFETY PLAN WITH [employer] DEVELOPER-PT STATED "I AM NOT GOING TO USE AGAIN". PATIENT WALKED OUT OF UNIT WITH FAMILY, NO SIGNS OR SYMPTOMS OF DISTRESS DURING DISCHARGE.
== END 2023-10-23 16:07 | disposition home or self-care (01) | DRG 917 ==
LOC: ER 07:55 → ICUE 10:16 → MEDS 10-22 14:40
PROVIDERS: Emergency Medicine; Family Medicine; Internal Medicine Critical Care Medicine; Physician Assistant; ADMIT Internal Medicine
PROC: 5A1955Z Respiratory Ventilation, Greater than 96 Consecutive Hours (ICD-10-PCS; 2023-10-15)
PROC: 0BH17EZ Insertion of Endotracheal Airway into Trachea, Via Natural or Artificial Opening (ICD-10-PCS; 2023-10-15)
PROC: 0T9B70Z Drainage of Bladder with Drainage Device, Via Natural or Artificial Opening (ICD-10-PCS; 2023-10-15)
PROC: 3E033XZ Introduction of Vasopressor into Peripheral Vein, Percutaneous Approach (ICD-10-PCS; principal; 2023-10-16)
PROC: 0DH67UZ Insertion of Feeding Device into Stomach, Via Natural or Artificial Opening (ICD-10-PCS; 2023-10-17)
DX: T40.2X1A Poisoning by other opioids, accidental (unintentional), initial encounter (principal); G92.8 Other toxic encephalopathy; J69.0 Pneumonitis due to inhalation of food and vomit; R57.8 Other shock; J96.00 Acute respiratory failure, unspecified whether with hypoxia or hypercapnia; F11.20 Opioid dependence, uncomplicated; I10 Essential (primary) hypertension; R56.9 Unspecified convulsions; F90.9 Attention-deficit hyperactivity disorder, unspecified type; Z98.890 Other specified postprocedural states; Z87.891 Personal history of nicotine dependence; Z88.5 Allergy status to narcotic agent; Z79.82 Long term (current) use of aspirin; Z79.899 Other long term (current) drug therapy; T36.0X5A Adverse effect of penicillins, initial encounter; T36.1X5A Adverse effect of cephalosporins and other beta-lactam antibiotics, initial encounter; B95.62 Methicillin resistant Staphylococcus aureus infection as the cause of diseases classified elsewhere; F10.90 Alcohol use, unspecified, uncomplicated
CPT/HCPCS: 31500; 31720; 36415; 36569; 51702; 71045; 80048; 80053; 80069; 81001; 82803; 82947; 83735; 84100; 85025; 85027; 87040; 87070; 87077; 87147; 87186; 87205; 93306; 94002; 94003; 96365-59; 97161; 99291-25; 99292; A9270; C1751; C9113; J0295; J0360; J0690; J1650; J1885; J1940; J1953; J2060; J2250; J2704; J3010; J3411; J3480; J7030; J7050; J7060; J7120; P9047

== ENCOUNTER 2024-05-05 13:58 | Day surgery (SDC) | payer OTHER ==
[~2024-05-05] VITALS: Ht 170.2 cm; Wt 144.6 kg
[~2024-05-05 13:58] MED LIST changes: +ACET500 PO; +ACTIVATED CHARCOAL PO; +AMLO5 PO; +ASPI81CH PO; +Atropine Sulfate 0.1 MG/ML 10ML SYR ONE; +CEFP200 PO; +Diphenhydramine50 M1 PO; +GUAI200 PO; +Glycopyrrolate 0.2 MG/ML 1MLVIAL ONE; +IBUP200 PO; +LOPE2C PO; +LOSA50 PO; +Lactated Ringer's 1,000 ML IV ONE; +Lidocaine 2% 5 ML SDV ONE; +Lidocaine HCl/Pf 1% 5 ML VIAL ONE; +MELATONIN5 M1 PO; +MIRALAX17 GM PO; +MULTI-VITAMIN1 EAC2 PO; +Methylene Blue 1% 100 MG/10 ML VIAL ONE; +NARCAN4 M1; +NICO21TP TOP; +NICORETTE2 M1 BC; +Ondansetron HCl 2 MG / ML 2ML Vial ONE; +SIME80CH PO; +SUBOXONE 8 MG-1 EACH SL; +VISBIOME 112.51 EACH PO; +ZOCOR20 MG PO; +ePHEDrine Sulfate 50 MG/ML 1ML Injection ONE
[2024-05-05] MEDS ORDERED: ONDA4ODT (14:20)
[2024-05-05] MEDS ORDERED: PROP10 (14:27)
[2024-05-05] MEDS ORDERED: FLUT1DIS2 (14:28)
[2024-05-05] MEDS ORDERED: AMPDEX30CR (14:28)
[2024-05-05] MEDS ORDERED: LISI20 (14:29)
[2024-05-05] MEDS ORDERED: MULVITA (14:29)
[2024-05-05] MEDS ORDERED: ALBU90OI (14:29)
[2024-05-05] MEDS ORDERED: ESCI10 (14:30)
[2024-05-05] MEDS ORDERED: FERSU300 (14:31)
[2024-05-05] MEDS ORDERED: TRIDERM28.4 GM (14:31)
[2024-05-05] MEDS ORDERED: NARCAN4 M1 (14:32)
[2024-05-05] MEDS ORDERED: Lidocaine HCl 4% 5 ML SDA ONE (16:10)
[2024-05-05] MEDS ORDERED: Lactated Ringer's 1,000 ML IV ONE (16:22)
[2024-05-05] MEDS ORDERED: propofoL 50 ML IV ONE (16:36)
[2024-05-05 17:31] VITALS: BP 118/85
== END 2024-05-05 17:34 | disposition home or self-care (01) ==
LOC: ORSCSDS 13:58
PROVIDERS: Internal Medicine Gastroenterology
PROC: 0DB98ZX Excision of Duodenum, Via Natural or Artificial Opening Endoscopic, Diagnostic (ICD-10-PCS; principal; 2024-05-05 15:30)
PROC: 0DB68ZX Excision of Stomach, Via Natural or Artificial Opening Endoscopic, Diagnostic (ICD-10-PCS; principal; 2024-05-05 15:30)
DX: R11.2 Nausea with vomiting, unspecified (principal); K90.0 Celiac disease; K29.80 Duodenitis without bleeding; K29.70 Gastritis, unspecified, without bleeding; K44.9 Diaphragmatic hernia without obstruction or gangrene; I10 Essential (primary) hypertension; I25.2 Old myocardial infarction; B19.20 Unspecified viral hepatitis C without hepatic coma; J45.909 Unspecified asthma, uncomplicated; G47.30 Sleep apnea, unspecified; F17.210 Nicotine dependence, cigarettes, uncomplicated; Z79.82 Long term (current) use of aspirin; Z79.899 Other long term (current) drug therapy
CPT/HCPCS: 88305; 88342; J0461; J2003; J2405; J2704; J7120; Q9968

== ENCOUNTER 2025-03-08 19:32 | Emergency (ER) | payer OTHER ==
[~2025-03-08] VITALS: Ht 172.7 cm; Wt 68.0 kg
[~2025-03-08 19:32] MED LIST changes: +ALBU90OI; +AMPDEX30CR; -Atropine Sulfate 0.1 MG/ML 10ML SYR ONE; +ESCI10; +FERSU300; +FLUT1DIS2; -Glycopyrrolate 0.2 MG/ML 1MLVIAL ONE; +LISI20; -Lactated Ringer's 1,000 ML IV ONE; -Lidocaine 2% 5 ML SDV ONE; -Lidocaine HCl/Pf 1% 5 ML VIAL ONE; +MULVITA; -Methylene Blue 1% 100 MG/10 ML VIAL ONE; +ONDA4ODT; -Ondansetron HCl 2 MG / ML 2ML Vial ONE; +PROP10; +TRIDERM28.4 GM; -ePHEDrine Sulfate 50 MG/ML 1ML Injection ONE
[2025-03-08 20:11] LABS: BASOPHILS ABSOLUTE AUTO 0.07 K/mm3 (0.00-0.23); BASOPHILS PERCENT AUTO 1 % (0-2); EOSINOPHILS ABSOLUTE AUTO 0.11 K/mm3 (0.00-0.68); EOSINOPHILS PERCENT AUTO 1 % (0-6); Hematocrit 38.3 % (37.0-53.0); Hemoglobin 12.8 g/dL (13.5-17.5); IMMATURE GRAN ABSOLUTE AUTO 0.06 K/mm3 (0.00-0.10); IMMATURE GRAN PERCENT AUTO 1 % (0-1); LYMPHOCYTES ABSOLUTE AUTO 2.13 K/mm3 (0.84-5.20); LYMPHOCYTES PERCENT AUTO 18 % (21-46); MONOCYTES ABSOLUTE AUTO 0.98 K/mm3 (0.16-1.47); MONOCYTES PERCENT AUTO 8 % (4-13); Mean Corpuscular HGB Conc 33.4 g/dL (31.5-36.5); Mean Corpuscular Volume 93 fL (80-100); NEUTROPHILS ABSOLUTE AUTO 8.76 K/mm3 (1.96-9.15); NEUTROPHILS PERCENT AUTO 72 % (41-73); NRBC ABSOLUTE 0.00 K/mm3 (0.00-0.02); NRBC Auto 0.0 /100 WBC (0.0-0.2); Platelet Count 251 K/mm3 (150-400); RDW Coefficient Variation 13.6 % (11.7-14.2); RDW Standard Deviation 46.4 fL (35.1-46.3)
[2025-03-08 20:59] LABS: Alanine Aminotransfer (ALT/SGP 173.0 U/L (12-78); Albumin, Blood 3.6 g/dL (3.4-5.0); Albumin/Globulin Ratio 0.8 (0.8-1.8); Anion Gap 10.0 mmol/L (3-11); Aspartate Aminotrans (AST/SGOT 121.0 U/L (12-37); Bilirubin, Total 0.5 mg/dL (0.1-1.0); Blood Urea Nitrogen 21.0 mg/dL (8-24); CO2, Blood 21.0 mmol/L (21-32); Calcium, Blood 9.0 mg/dL (8.5-10.1); Chloride, Blood 106.0 mmol/L (98-108); Creatinine, Blood 0.93 mg/dL (0.60-1.20); Globulin, Blood 4.3 g/dL (2.2-4.0); Glucose, Blood 123.0 mg/dL (70-99); Potassium, Blood 4.2 mmol/L (3.5-5.5); Sodium, Blood 133.0 mmol/L (136-145); Total Protein, Blood 7.9 g/dL (6.4-8.2)
[2025-03-08 23:00] VITALS: BP 122/96
[2025-03-10 16:51] LABS: HEPATITIS A ANTIBODY, IGM Negative (Negative); HEPATITIS C AB CIA INTERP High Pos (Negative); HEPATITIS C ANTIBODY CIA INDEX >11.00 IV
[2025-03-11 13:39] LABS: HCV QNT BY NAAT (IU/ML) 1080000 IU/mL; HCV QNT BY NAAT (LOG IU/ML) 6.03; HCV QNT BY NAAT INTERP Detected (Not Detected)
== END 2025-03-08 23:18 | disposition home or self-care (01) ==
LOC: ER 19:32
PROVIDERS: Emergency Medicine
DX: R07.9 Chest pain, unspecified (principal); R74.01 Elevation of levels of liver transaminase levels
CPT/HCPCS: 71046; 76705; 80053; 80074; 83690; 84484; 85025; 87522; 93005; 93010; 99285-25